=== PATIENT | male | born 1965 | race Caucasian/White ===

== ENCOUNTER 2019-05-03 10:46 | Day surgery (SDC) | payer BC ==
[~2019-05-03] VITALS: Ht 172.7 cm; Wt 91.0 kg
[2019-05-04 09:35] VITALS: BP 134/84
== END 2019-05-04 10:20 | disposition home or self-care (01) ==
LOC: OUT 10:46 → ORIP 16:29 → UNDOADMIN 16:29 → ORIP 17:50 → 4NOR 17:50 → EDSTATUS 19:30 → DCLOUNGE 05-04 10:11 → 4NOR 05-04 10:11 → UNDODISIN 05-04 10:20 → OUT 05-04 10:20
PROVIDERS: ATTEND Neurological Surgery
DX: M50.123 Cervical disc disorder at C6-C7 level with radiculopathy (principal); M48.02 Spinal stenosis, cervical region; M25.78 Osteophyte, vertebrae; M43.22 Fusion of spine, cervical region; E11.9 Type 2 diabetes mellitus without complications; E78.5 Hyperlipidemia, unspecified; K21.9 Gastro-esophageal reflux disease without esophagitis; M19.90 Unspecified osteoarthritis, unspecified site; Z87.891 Personal history of nicotine dependence; Z88.8 Allergy status to other drugs, medicaments and biological substances; Z79.891 Long term (current) use of opiate analgesic; Z79.899 Other long term (current) drug therapy; Z83.3 Family history of diabetes mellitus; Z82.49 Family history of ischemic heart disease and other diseases of the circulatory system; Z82.5 Family history of asthma and other chronic lower respiratory diseases
CPT/HCPCS: 20936; 22554; 22585; 22854; 36415; 63081; 63082; 72040; 82962; 86850; 86900; 97162; 97165; 97535; C1713; C1776; J0171; J0690; J1170; J2250; J2704; J2710; J3010; J3480; J7120; G0378

== ENCOUNTER 2019-05-06 20:10 | Emergency (ER) | payer BC ==
[~2019-05-06] VITALS: Ht 172.7 cm; Wt 86.7 kg
[~2019-05-06 20:10] MED LIST: ATOR40TA78 PO; CELEXA PO; CEPH-368 PO; FISH OIL PO; HYDR-3307 PO; METH750T87 PO; MULTIVITAMIN PO; OMEP-110 PO; VICTOZA; VICTOZA PO; VITAMIN B12 PO; [UNRECOGNIZED DRUG - OTHER] PO
[2019-05-06] MEDS ORDERED: SODIUM CHLORIDE FLUSH 10ML SYR IVF ONE (20:30)
[2019-05-06 20:40] LABS: BASOPHILS # (AUTO) 0.03 x10^3/uL (0-0.1); BASOPHILS % (AUTO) 0 % (0-1); EOSINOPHILS # (AUTO) 0.05 x10^3/uL (0-0.4); EOSINOPHILS % (AUTO) 1 % (1-7); LYMPHOCYTES # (AUTO) 1.47 x10^3/uL (1-3.4); LYMPHOCYTES % (AUTO) 15 % (22-44); MD NO; MEAN CORPUSCULAR HEMOGLOBIN 31.6 pg (27.5-34.5); MEAN CORPUSCULAR HGB CONC 32.9 g/dL (33.2-36.2); MEAN CORPUSCULAR VOLUME 96.1 fL (81-97); MEAN PLATELET VOLUME 7.3 fL (7.4-10.4); MONOCYTES # (AUTO) 0.93 x10^3/uL (0.2-0.8); MONOCYTES % (AUTO) 10 % (2-9); NEUTROPHILS # (AUTO) 7.19 x10^3/uL (1.8-6.8); NEUTROPHILS % (AUTO) 75 % (42-75); PLATELET COUNT 165 x10^3/uL (130-400); RED BLOOD COUNT 4.86 x10^6/uL (4.38-5.82)
[2019-05-06 20:50] LABS: ALBUMIN 3.5 g/dL (3.4-5.0); ANION GAP 9 mmol/L (5-15); CALCIUM 9.5 mg/dL (8.5-10.1); CHLORIDE 106 mmol/L (98-107); CREATININE 0.85 mg/dL (0.7-1.3)
--- NOTE | 2019-05-06 20:58 | NUR ---
PT RREPORTS HE HAD A ANTERIOR CERVICAL FUSION RECENTLY AND WAS DISCHARGED YESTERDAY, TODAY HE IS HAVING A HARD TIME SWALLOWING. VS STABLE. NO AIRWAY COMPROMISE. CALL LIGHT IN PLACE. WILL CONTINUE TO MONITOR.
--- NOTE | 2019-05-06 21:33 | NUR ---
PT IS BACK FROM CT AND RESTING IN ROOM. NO ACUTE DISTRESS NOTED. CALL LIGHT IN PLACE. WILL CONTINUE TO MONITOR.
[2019-05-06] MEDS ORDERED: OMNIPAQUE 350 MG/ML, 100ML BOTTLE ONE (21:44)
--- NOTE | 2019-05-06 23:50 | NUR ---
PT RESTING IN ROOM. NO ACUTE DISTRESS NOTED. VS STABLE. WILL CONTINUE TO MONITOR.
[2019-05-06] MEDS ORDERED: DEXAMETHASONE 4 MG TABLET ONE (23:59)
[2019-05-06] MEDS ORDERED: OXYcodone/APAP 10/325MG TABLET ONE (23:59)
[2019-05-07] MEDS ORDERED: DEXAMETHASONE 4 MG TABLET PO ONE
[2019-05-07] MEDS ORDERED: OXYcodone/APAP 10/325MG TABLET PO ONE
[2019-05-07 00:13] VITALS: BP 138/89
--- NOTE | 2019-05-07 00:16 | NUR ---
PT WANTS TO TAKE HOME [place] WHEN HE GETS HOME. VS STABLE. DR JAMES HAS UPDATED PATIENT. PT READY FOR DC.
== END 2019-05-07 00:21 | disposition home or self-care (01) ==
LOC: ED 23:59
DX: R13.10 Dysphagia, unspecified (principal)
CPT/HCPCS: 36415; 70491; 80048; 82040; 85025; 99284; Q9967